=== PATIENT | female | born 1945 | race African-American/Black ===

== ENCOUNTER → 2017-11-25 | Outpatient (CLI) | payer MEDICARE ==
[~2017-11-25] MED LIST: ALBU17I INH; ALBU2.5I INH; ASPI325T PO; BUDE.5I NEB; CARD120C4 PO; FORM12I NEB; FURO1TAB93 PO; GLUCTAB PO; IPRA0.02 NEB; LISI2.5T55 PO; MEVA40TA6 PO; OMEP20TA39 PO; POTA-243 PO; TAB-TAB PO; VITATAB25 PO; Z.0.OXYGEN INH
--- NOTE | 2017-11-25 11:18 | RADRPT ---
EXAM DATE: 11/25/2017 11:11 AM EDT AGE/SEX: 72 years / Female INDICATIONS: Left hip pain post fall 6 weeks ago. CLINICAL DATA: This is the patient's initial encounter. Patient reports that signs and symptoms have been present for 2 months and indicates a pain score of 10/10. MEDICAL/SURGICAL HISTORY: Gastroesophageal reflux disease. Chronic obstructive pulmonary disea se. Hypercholesterolemia. CHF. Arthritis. Diabetic. section. COMPARISON: No prior [facility] exams available for comparison. FINDINGS: AP view of the pelvis with 2 views of the left hip joint demonstrate no fracture or dislocation. Mine ralization is normal. There is mild osteoarthritis at the hip joints bilaterally, right greater than left, with joint space narrowing, small osteophytes, and subchondral cystic change. Sacroiliac joints demonstrate no acute abnormality. No soft tissue abnormality or radiopaque foreign body is seen. CONCLUSION: No acute abnormality is identified. There is bilateral hip joint osteoarthritis. Electronically signed by: Andrez Noel MD 11/25/2017 11:17 AM EDT
== END ==
LOC: HRAD 10:31
PROVIDERS: ATTEND Family Medicine
DX: M25.552 Pain in left hip (principal)
CPT/HCPCS: 73502

== ENCOUNTER → 2017-12-15 | Outpatient (CLI) | payer MEDICARE ==
--- NOTE | 2017-12-15 13:12 | RADRPT ---
EXAM DATE: 12/15/2017 1:01 PM EDT AGE/SEX: 72 years / Female INDICATIONS: Fell in September 2017, has had pain in left hip since the fall CLINICAL DATA: This is the patient's sequela encounter. Patient reports that signs and symptoms have been present for 2 months and indicates a pain score of 10/10. MEDICAL/SURGICAL HISTORY: Arthritis. Chronic obstructive pulmonary disease. Congestive heart failure. diabetic None. COMPARISON: C, HIP LEFT (AP&LAT 2/3VWS) W AP PELVIS, 11/25/2017. . FINDINGS: Degenerative changes lower lumbar spine and both SI joints. Mild degenerative changes both hips worse on the left than the right. No fracture. CONCLUSION: Degenerative changes, no fracture Electronically signed by: Tim Ramirez MD 12/15/2017 1:10 PM EDT
== END ==
LOC: HRAD 12:20
PROVIDERS: ATTEND Family Medicine
DX: M25.552 Pain in left hip (principal)
CPT/HCPCS: 73502